=== PATIENT | male | born 1965 | race Caucasian/White ===

== ENCOUNTER 2016-11-27 22:18 | Emergency (ER) | payer BC, OTHER ==
[~2016-11-27] VITALS: Ht 180.3 cm; Wt 203.7 kg
[2016-11-27] MEDS ORDERED: METF-415 PO (22:38)
[2016-11-27] MEDS ORDERED: MULT1CHW39 PO (22:38)
[2016-11-27] MEDS ORDERED: FURO20TA2 PO (22:38)
[2016-11-27] MEDS ORDERED: AZEL0.055 (22:38)
[2016-11-27] MEDS ORDERED: RANI150T PO (22:38)
[2016-11-27] MEDS ORDERED: ASPI1TAB PO (22:38)
[2016-11-27] MEDS ORDERED: GABA-282 PO (22:38)
[2016-11-27] MEDS ORDERED: FLOM5CAP PO (22:38)
[2016-11-27] MEDS ORDERED: KETO10TAB PO (22:38)
[2016-11-27] MEDS ORDERED: PANT40TA2 PO (22:38)
[2016-11-27] MEDS ORDERED: LISI-538 PO (22:38)
[2016-11-27] MEDS ORDERED: OXYC15TA76 PO (22:38)
[2016-11-27] MEDS ORDERED: MOME50SP (22:38)
[2016-11-27] MEDS ORDERED: HYDR12.55 PO (22:38)
[2016-11-27] MEDS ORDERED: NAPR500T2 PO (22:38)
[2016-11-27 23:15] LABS: MICROSCOPIC INDICATED? MAN YES (NO)
[2016-11-27 23:17] LABS: BACTERIA, URINE LARGE AMOUNT; HYALINE CAST, URINE NONE SEEN /lpf (0-1); RBC, URINE TNTC /hpf (0-3); SQUAMOUS EPITHELIAL CELL URINE NONE SEEN /hpf (SMALL AMT); WBC, URINE TNTC /hpf (0-3)
[2016-11-27 23:18] LABS: MICROSCOPIC EXAM PERFORMED
[2016-11-28] MEDS: HYDROmorphone HCL 1 MG/ML SYRINGE (J1170) IV PRN ×2 (01:48→02:56)
[2016-11-28] MEDS: ONDANSETRON 4MG/2ML VIAL (J2405) IV ONE ×2 (01:48→02:56)
[2016-11-28 01:59] LABS: BASO % 0.2 % (0.0-1.0); EOS # 0.3 K/mm3 (0.0-0.50); EOS % 2.2 % (0.0-3.0); LARGE UNSTAINED CELL # 0.2 K/mm3 (0.0-0.4); LARGE UNSTAINED CELL % 1.5 % (0.0-4.0); LYMPH # 1.3 K/mm3 (1.5-4.5); LYMPH % 8.9 % (24.0-44.0); MEAN CORPUSCULAR HEMOGLOBIN 26.6 pg (27.0-33.0); MEAN CORPUSCULAR HGB CONC 32.3 g/dl (32.0-36.5); MEAN CORPUSCULAR VOLUME 82.6 fl (80.0-96.0); MONO # 0.9 K/mm3 (0.0-0.8); MONO % 7.5 % (0.0-5.0); NEUTROPHILS # 9.6 K/mm3 (1.8-7.7); NEUTROPHILS % 79.7 % (36.0-66.0); PLATELET COUNT, AUTOMATED 186 k/mm3 (150-450)
[2016-11-28 02:24] LABS: ALBUMIN 3.1 GM/DL (3.2-5.2); ALBUMIN/GLOBULIN RATIO 0.82 (1.00-1.93); ALKALINE PHOSPHATASE 54 U/L (45-117); ALT/SGPT 35 U/L (12-78); ANION GAP 8 MEQ/L (8-16); AST/SGOT 15 U/L (15-37); BILIRUBIN,DIRECT 0.1 MG/DL (0.0-0.2); BILIRUBIN,TOTAL 0.9 MG/DL (0.2-1.0); BLOOD UREA NITROGEN 18 MG/DL (7-18); CALCIUM LEVEL 8.1 MG/DL (8.5-10.1); CARBON DIOXIDE LEVEL 27 MEQ/L (21-32); CHLORIDE LEVEL 103 MEQ/L (98-107); CREATININE FOR GFR 0.93 MG/DL (0.70-1.30); GLOMERULAR FILTRATION RATE > 60.0 (>56); GLUCOSE, FASTING 137 MG/DL (70-105); POTASSIUM SERUM 3.7 MEQ/L (3.5-5.1); SODIUM LEVEL 138 MEQ/L (136-145); TOTAL PROTEIN 6.9 GM/DL (6.4-8.2)
--- NOTE | 2016-11-28 02:27 | REP ---
Clinical: Pain. Technique: Axial noncontrast images from the lung bases to the pubic symphysis with coronal and sagittal re-formations. Comparison: 01/28/2012. Findings: Lung bases are clear. Liver, spleen, pancreas, gallbladder, bilateral adrenal glands and kidneys are normal. Specifically, there is no perinephric stranding, hydroureteronephrosis, intrarenal or obstructing ureteral calculi. The enteric system is without obstruction or acute inflammatory process. Normal terminal ileum and appendix identified in the right lower quadrant. 3 cm fat containing periumbilical hernia noted. Pelvis demonstrates normal bladder and age appropriate prostate/seminal vesicles. Rectosigmoid is normal. No pelvic fluid or ascites. No intraperitoneal or retroperitoneal adenopathy. No free air. Abdominal aorta without aneurysm. Surrounding musculoskeletal structures are intact and normal. Impression: 1. A 3 cm fat containing periumbilical hernia. 2. Otherwise normal CT of the abdomen and pelvis. Signed by Ar Montiel MD 11/28/2016 02:19 A
[2016-11-28] MEDS ORDERED: HYDROmorphone HCL 1 MG/ML SYRINGE (J1170) IM ONE (02:45)
[2016-11-28] MEDS: NS 1,000 ML IV ONE ×2 (02:55)
[2016-11-28] MEDS: KETOROLAC 30 MG/ML VIAL (J1885) IV ONE ×2 (02:55)
[2016-11-28] MEDS ORDERED: KETOROLAC 60 MG/2 ML VIAL (J1885) IM ONE (03:00)
[2016-11-28 04:11] VITALS: BP 124/60
[2016-11-28] MEDS ORDERED: DILA2TAB2 PO (04:37)
[2016-11-28] MEDS ORDERED: CIPR500T89 PO (04:37)
[2016-11-28] MEDS ORDERED: HYDROmorphone 2 MG TAB PO ONE (04:45)
[2016-11-28] MEDS ORDERED: CIPROFLOXACIN 500 MG TAB PO ONE (04:45)
== END 2016-11-28 05:10 | disposition home or self-care (01) ==
LOC: M ED 22:18
DX: R10.9 Unspecified abdominal pain (principal); R31.9 Hematuria, unspecified; Z87.442 Personal history of urinary calculi; K42.9 Umbilical hernia without obstruction or gangrene; Z79.82 Long term (current) use of aspirin; Z79.899 Other long term (current) drug therapy; Z88.0 Allergy status to penicillin

== ENCOUNTER → 2016-12-08 | Outpatient (REF) | payer OTHER, MEDICARE ==
[~2016-12-08] MED LIST: ASPI1TAB PO; AZEL0.055; BACT800T5 PO; CIPR500T89 PO; DILA2TAB2 PO; FLOM5CAP PO; FURO20TA2 PO; GABA-282 PO; HYDR12.55 PO; KETO10TAB PO; LISI-538 PO; METF-415 PO; MOME50SP; MULT1CHW39 PO; NAPR500T2 PO; OXYC15TA76 PO; PANT40TA2 PO; PYRI200T5 PO; RANI150T PO
== END ==
LOC: M SMT 14:36
PROVIDERS: ATTEND Nurse Practitioner Family
DX: R31.9 Hematuria, unspecified (principal)

== ENCOUNTER 2016-12-20 15:07 | Emergency (ER) | payer MEDICARE, OTHER ==
[~2016-12-20] VITALS: Ht 180.3 cm; Wt 202.9 kg
[~2016-12-20 15:07] MED LIST changes: -BACT800T5 PO; +CIPR-249 PO; -CIPR500T89 PO; -DILA2TAB2 PO; +DILA2TAB6 PO; -NAPR500T2 PO; +NAPR500T3 PO; -PYRI200T5 PO
[2016-12-20] MEDS ORDERED: OXYC15TA76 PO (15:45)
[2016-12-20] MEDS ORDERED: MORPHINE 4 MG/ML 1ML SYRINGE IV ONE (16:45)
[2016-12-20] MEDS ORDERED: BACT800T5 PO (17:25)
[2016-12-20] MEDS ORDERED: PYRI1TAB5 PO (17:25)
--- NOTE | 2016-12-20 17:29 | REP ---
CT study of the abdomen pelvis without IV or oral contrast: Renal stone protocol: History: Low back pain. Hematuria. Comparison CT study is from 11/28/2016. CT findings: Preliminary digital aeronautics commission director radiograph shows image degradation due to patient body habitus but a normal bowel gas pattern is seen. The lung bases are clear. The liver and the spleen are normal in size homogeneous in texture. The gallbladder and pancreas are unremarkable. No adrenal lesion is seen. There is no evidence of hydronephrosis on either side. No intrarenal calculus is seen. No renal mass or cyst is observed. There is some vascular calcification. Normal caliber aorta. A normal appendix is seen in the right lower abdomen. Small umbilical hernia is seen transmitting abdominal fat. There is a second small ventral hernia well above the umbilicus transmitting a small knuckle of abdominal fat through a defect which measures 1.5 centimeters in transverse dimension x 0.8 cm in craniocaudal span. This was excluded from the field of view of the previous CT study because of patient body habitus. No other abdominal wall defect is seen. Seminal vesicles, urinary bladder, and prostate are unremarkable. No urinary tract calculus is seen. No bony destructive lesion is appreciated. Impression: 1. Small umbilical hernia and small epigastric ventral hernia both transmitting small quantities of intra-abdominal fat. 2. Otherwise normal CT study abdomen and pelvis. Normal appendix seen. No urinary tract calculus seen. Mild vascular calcification. Signed by Linden Lowry MD 12/20/2016 08:27 P
[2016-12-20 18:35] LABS: BASO % 0.7 % (0.0-1.0); EOS # 0.2 K/mm3 (0.0-0.50); EOS % 2.6 % (0.0-3.0); LARGE UNSTAINED CELL # 0.1 K/mm3 (0.0-0.4); LARGE UNSTAINED CELL % 2.3 % (0.0-4.0); LYMPH # 1.6 K/mm3 (1.5-4.5); LYMPH % 27.1 % (24.0-44.0); MEAN CORPUSCULAR HEMOGLOBIN 27.7 pg (27.0-33.0); MEAN CORPUSCULAR HGB CONC 33.4 g/dl (32.0-36.5); MEAN CORPUSCULAR VOLUME 83.1 fl (80.0-96.0); MONO # 0.4 K/mm3 (0.0-0.8); MONO % 6.9 % (0.0-5.0); NEUTROPHILS # 3.6 K/mm3 (1.8-7.7); NEUTROPHILS % 60.3 % (36.0-66.0); PLATELET COUNT, AUTOMATED 206 k/mm3 (150-450); RED CELL DISTRIBUTION WIDTH 14.9 % (11.5-14.5); WHITE BLOOD COUNT 5.9 K/mm3 (4.0-10.0)
[2016-12-20 18:40] LABS: INR 1.04
[2016-12-20 18:55] LABS: ANION GAP 6 MEQ/L (8-16); BLOOD UREA NITROGEN 15 MG/DL (7-18); CALCIUM LEVEL 8.7 MG/DL (8.5-10.1); CARBON DIOXIDE LEVEL 29 MEQ/L (21-32); CHLORIDE LEVEL 107 MEQ/L (98-107); CREATININE FOR GFR 0.82 MG/DL (0.70-1.30); GLOMERULAR FILTRATION RATE > 60.0 (>56); GLUCOSE, FASTING 103 MG/DL (70-105); POTASSIUM SERUM 3.9 MEQ/L (3.5-5.1); SODIUM LEVEL 142 MEQ/L (136-145)
[2016-12-20] MEDS ORDERED: BACTRIM 160MG/800MG DS TAB PO ONE (19:15)
[2016-12-20 19:30] VITALS: BP 167/88
== END 2016-12-20 19:31 | disposition home or self-care (01) ==
LOC: M ED 15:07
DX: N30.01 Acute cystitis with hematuria (principal); K43.9 Ventral hernia without obstruction or gangrene; K42.9 Umbilical hernia without obstruction or gangrene; R30.0 Dysuria; E11.9 Type 2 diabetes mellitus without complications; Z87.442 Personal history of urinary calculi; Z87.891 Personal history of nicotine dependence; Z88.0 Allergy status to penicillin; Z91.013 Allergy to seafood; Z79.4 Long term (current) use of insulin; Z79.82 Long term (current) use of aspirin; Z79.1 Long term (current) use of non-steroidal anti-inflammatories (NSAID); Z79.899 Other long term (current) drug therapy

== ENCOUNTER → 2017-01-10 | Outpatient (CLI) | payer OTHER ==
[~2017-01-10] MED LIST changes: +BACT800T5 PO; +PYRI1TAB5 PO
[2017-01-10 11:14] LABS: MEAN CORPUSCULAR HEMOGLOBIN 27.4 pg (27.0-33.0); MEAN CORPUSCULAR HGB CONC 33.4 g/dl (32.0-36.5); MEAN CORPUSCULAR VOLUME 82.2 fl (80.0-96.0); RED CELL DISTRIBUTION WIDTH 14.6 % (11.5-14.5); WHITE BLOOD COUNT 6.1 K/mm3 (4.0-10.0)
[2017-01-10 11:19] LABS: INR 0.97
--- NOTE | 2017-01-10 11:37 | REP ---
Chest two views HISTORY: Hematuria Comparison: 01/28/2012 The lungs are clear. The heart is normal in size. The pulmonary vasculature is normal in appearance. The bony structure is intact. IMPRESSION: No acute disease. Signed by Iban Hernandez MD 01/10/2017 11:28 A
[2017-01-10 11:42] LABS: ANION GAP 8 MEQ/L (8-16); BLOOD UREA NITROGEN 13 MG/DL (7-18); CALCIUM LEVEL 8.7 MG/DL (8.5-10.1); CARBON DIOXIDE LEVEL 28 MEQ/L (21-32); CHLORIDE LEVEL 105 MEQ/L (98-107); CREATININE FOR GFR 0.77 MG/DL (0.70-1.30); GLOMERULAR FILTRATION RATE > 60.0 (>56); GLUCOSE, FASTING 100 MG/DL (70-105); SODIUM LEVEL 141 MEQ/L (136-145)
--- NOTE | 2017-01-10 20:01 | ECGEPIP ---
Stationary ECG Study [facility] Test Date: 2017-01-10 Pat Name: NITA REBOLLAR Department: Room: - Gender: M Management Development Specialist: : 1965 Requested By: Tracy NICKERSON Order Number: [id number] Reading MD: Dk Almanza Measurements Intervals [place] Rate: 65 P: 27 OK: 165 QRS: 50 QRSD: 106 T: 75 QT: 398 QTc: 416 Interpretive Statements Normal sinus rhythm Incomplete RBBB with slow precordial R-wave progression, and persistent S waves in V5 and V6; body habitus versus pulmonary disease. Subtle nonspecific ST/T-wave abnormalities new from 12/06/11. Clinical correlation advised Electronically Signed On 01-10-2017 20:01:03 EDT by Dk Almanza
== END ==
LOC: M LAB 10:38
PROVIDERS: ATTEND Nurse Practitioner Women's Health
DX: Z01.812 Encounter for preprocedural laboratory examination (principal); R31.0 Gross hematuria

== ENCOUNTER → 2017-01-15 | Day surgery (SDC) | payer OTHER ==
[~2017-01-15] VITALS: Ht 182.9 cm; Wt 204.1 kg
[~2017-01-15] MED LIST changes: +ACETAMINOPHEN TAB 650MG DOSE (2X325MG) PO PRN; +CLINDAMYCIN 900 MG in APPROPRIATE DILUENT 1 EA IV ONE; +CONRAY-60 60% 50ML VIAL (Q9961) As Ordered ONE; +LABETALOL HCL 100 MG/20 ML VIAL As Ordered ONE; +LIDOCAINE 2% 5ML JELLY UROJET As Ordered ONE; +LISINOPRIL 20 MG TAB PO ONE; +LR 1,000 ML IV SCH; +MIDAZOLAM INJ 2 MG/2 ML VIAL (J2250) As Ordered ONE; +MIDAZOLAM INJ 5 MG/ML VIAL (J2250) As Ordered ONE; +ONDANSETRON 4MG/2ML VIAL (J2405) IV PRN; +fentaNYL 100 MCG/2 ML INJECTION (J3010) As Ordered ONE; +fentaNYL 100 MCG/2 ML INJECTION (J3010) IV PRN; +oxyCODONE 15 MG CR TAB PO ONE
--- NOTE | 2017-01-15 13:37 | REP ---
C-ARM VIEWS DURING BILATERAL RETROGRADE PYELOGRAM: Four C-arm views are performed. There is injection of contrast into the ureters bilaterally. There is free flow into the pelvicalyceal systems bilaterally. No definite filling defect or structure is seen bilaterally. 12 seconds fluoroscopy time utilized for the procedure. Signed by Elio Modi MD 01/15/2017 05:25 P
[2017-01-15 13:50] VITALS: BP 205/88
[2017-01-15 15:05] VITALS: BP 151/67
--- NOTE | 2017-01-16 09:44 | RO ---
DATE OF PROCEDURE: 01/15/2017 PREPROCEDURE DIAGNOSIS: Gross hematuria. POSTPROCEDURE DIAGNOSIS: Gross hematuria. PROCEDURE: Cystoscopy, bilateral retrograde pyelogram with intraoperative interpretation of images. SURGEON: Richy Saldana MD SALES DEPARTMENT CLERK: None. ANESTHESIA: Monitored anesthesia care (MAC). OPERATIVE INDICATIONS: This is a 51-year-old male who recently was found to have gross hematuria, here today for the above procedure as part of his hematuria work up. DESCRIPTION OF PROCEDURE: The patient was brought to the operating room, and MAC anesthesia was administered. Prophylactic antibiotics were infused. He was then placed in the dorsal lithotomy position and prepped and draped in the usual sterile fashion. At this point, I went in with the flexible cystoscope, and the bladder was thoroughly examined. No abnormalities were seen in the bladder. Of note, there were no tumors seen. Bilateral ureteral orifices were orthotopic and effluxed clear urine. At this point, an open-ended ureteral catheter was advanced up the right ureteral orifice, and a retrograde pyelogram was performed. It was negative for hydronephrosis, extravasation, or filling defects. We then withdrew the open-ended ureteral catheter and advanced it up the left collecting system. A retrograde pyelogram was then performed on the left side, and it was negative for extravasation, hydronephrosis, or filling defects. At this point, the cystoscope was removed, and this marked the conclusion of the procedure. The patient was then taken out of the dorsal lithotomy position, awakened from anesthesia, and transported to the recovery room in stable condition. ESTIMATED BLOOD LOSS: 0 mL. COMPLICATIONS: None. SPECIMENS: None. PLAN: The patient will followup in the clinic in 2 weeks for a postoperative visit. This does conclude his hematuria workup, which was negative. BRENDA
== END | disposition home or self-care (01) ==
LOC: M SDC 09:32
PROVIDERS: ATTEND Urology
DX: R31.0 Gross hematuria (principal); I10 Essential (primary) hypertension; E11.9 Type 2 diabetes mellitus without complications; K21.9 Gastro-esophageal reflux disease without esophagitis; J45.909 Unspecified asthma, uncomplicated; Z88.0 Allergy status to penicillin; Z79.82 Long term (current) use of aspirin; Z79.899 Other long term (current) drug therapy; Z91.013 Allergy to seafood

== ENCOUNTER → 2017-02-20 | Outpatient (CLI) | payer OTHER ==
[~2017-02-20] MED LIST changes: -ACETAMINOPHEN TAB 650MG DOSE (2X325MG) PO PRN; -CLINDAMYCIN 900 MG in APPROPRIATE DILUENT 1 EA IV ONE; -CONRAY-60 60% 50ML VIAL (Q9961) As Ordered ONE; -LABETALOL HCL 100 MG/20 ML VIAL As Ordered ONE; -LIDOCAINE 2% 5ML JELLY UROJET As Ordered ONE; -LISINOPRIL 20 MG TAB PO ONE; -LR 1,000 ML IV SCH; -MIDAZOLAM INJ 2 MG/2 ML VIAL (J2250) As Ordered ONE; -MIDAZOLAM INJ 5 MG/ML VIAL (J2250) As Ordered ONE; -ONDANSETRON 4MG/2ML VIAL (J2405) IV PRN; -fentaNYL 100 MCG/2 ML INJECTION (J3010) As Ordered ONE; -fentaNYL 100 MCG/2 ML INJECTION (J3010) IV PRN; -oxyCODONE 15 MG CR TAB PO ONE
[2017-02-20 17:22] LABS: MEAN CORPUSCULAR HEMOGLOBIN 27.5 pg (27.0-33.0); MEAN CORPUSCULAR VOLUME 83.4 fl (80.0-96.0); RED CELL DISTRIBUTION WIDTH 14.8 % (11.5-14.5); WHITE BLOOD COUNT 6.4 K/mm3 (4.0-10.0)
== END ==
LOC: M LRY 14:37
PROVIDERS: ATTEND Physician Assistant Medical
DX: D69.6 Thrombocytopenia, unspecified (principal)

== ENCOUNTER → 2018-03-05 | Outpatient (CLI) | payer OTHER | LOC: M RAD 12:52 | DX: N50.89 Other specified disorders of the male genital organs (principal); N43.3 Hydrocele, unspecified | CPT/HCPCS: 76870 ==

== ENCOUNTER → 2018-03-08 | Outpatient (CLI) | payer OTHER ==
[2018-03-08 11:36] LABS: BASO % 0.6 % (0.0-1.0); EOS # 0.2 10^3/uL (0.0-0.50); HEMATOCRIT 43.6 % (42.0-52.0); HEMOGLOBIN 14.1 g/dl (13.5-17.5); IMMATURE GRANULOCYTE % 0.4 % (0-3.0); LYMPH # 1.4 10^3/uL (1.5-4.5); LYMPH % 27.2 % (24.0-44.0); MEAN CORPUSCULAR HEMOGLOBIN 27.2 pg (27.0-33.0); MEAN CORPUSCULAR HGB CONC 32.3 g/dl (32.0-36.5); MONO # 0.5 10^3/uL (0.0-0.8); MONO % 9.7 % (0.0-5.0); NEUTROPHILS # 3.1 10^3/uL (1.8-7.7); NEUTROPHILS % 59.1 % (36.0-66.0); PLATELET COUNT, AUTOMATED 188 10^3/uL (150-450); RED BLOOD COUNT 5.19 10^6/uL (4.30-6.10); RED CELL DISTRIBUTION WIDTH 14.4 % (11.5-14.5); WHITE BLOOD COUNT 5.3 10^3/uL (4.0-10.0)
[2018-03-08 12:10] LABS: ALBUMIN 3.3 GM/DL (3.2-5.2); ALBUMIN/GLOBULIN RATIO 0.89 (1.00-1.93); ALKALINE PHOSPHATASE 54 U/L (45-117); ALT/SGPT 48 U/L (12-78); ANION GAP 7 MEQ/L (8-16); AST/SGOT 27 U/L (7-37); BILIRUBIN,TOTAL 0.5 MG/DL (0.2-1.0); BLOOD UREA NITROGEN 13 MG/DL (7-18); CALCIUM LEVEL 8.5 MG/DL (8.5-10.1); CARBON DIOXIDE LEVEL 29 MEQ/L (21-32); CHLORIDE LEVEL 106 MEQ/L (98-107); CHOLESTEROL LEVEL 153 MG/DL (<200); CHOLESTEROL RISK RATIO 3.731 (<5); CREATININE FOR GFR 0.75 MG/DL (0.70-1.30); FREE T4 0.96 NG/DL (0.76-1.46); GLOMERULAR FILTRATION RATE > 60.0 (>56); GLUCOSE, FASTING 102 MG/DL (70-100); HDL CHOLESTEROL 41 MG/DL (>40); LDL CHOLESTEROL 93 MG/DL (<100); NON-HDL-C 112 MG/DL; POTASSIUM SERUM 4.4 MEQ/L (3.5-5.1); SODIUM LEVEL 142 MEQ/L (136-145); TRIGLYCERIDES LEVEL 95 MG/DL (<150)
[2018-03-08 22:10] LABS: ESTIMATED AVERAGE GLUCOSE 140 MG/DL (60-110); HEMOGLOBIN A1c 6.5 %
== END ==
LOC: M LRY 08:10
DX: E78.2 Mixed hyperlipidemia (principal); E11.65 Type 2 diabetes mellitus with hyperglycemia; E03.9 Hypothyroidism, unspecified; I10 Essential (primary) hypertension
CPT/HCPCS: 84443

== ENCOUNTER → 2018-05-15 | Outpatient (CLI) | payer OTHER | LOC: M PAIN 14:30 | DX: Z53.29 Procedure and treatment not carried out because of patient's decision for other reasons (principal) ==

== ENCOUNTER → 2018-08-08 | Outpatient (CLI) | payer OTHER ==
[~2018-08-08] MED LIST changes: +FLOM0.4C39 PO; -FLOM5CAP PO; -GABA-282 PO; +GABA-843 PO; +NAPR-885 PO; -NAPR500T3 PO; -PANT40TA2 PO; +PANT40TA3 PO
[2018-08-08 11:56] LABS: BASO % 0.7 % (0.0-1.0); EOS # 0.1 10^3/uL (0.0-0.50); EOS % 2.5 % (0.0-3.0); HEMATOCRIT 40.7 % (42.0-52.0); HEMOGLOBIN 13.1 g/dl (13.5-17.5); LYMPH # 1.5 10^3/uL (1.5-4.5); LYMPH % 26.2 % (24.0-44.0); MEAN CORPUSCULAR HEMOGLOBIN 27.2 pg (27.0-33.0); MEAN CORPUSCULAR HGB CONC 32.2 g/dl (32.0-36.5); MEAN CORPUSCULAR VOLUME 84.6 fl (80.0-96.0); MONO # 0.5 10^3/uL (0.0-0.8); MONO % 9.7 % (0.0-5.0); NEUTROPHILS # 3.4 10^3/uL (1.8-7.7); NEUTROPHILS % 60.7 % (36.0-66.0); PLATELET COUNT, AUTOMATED 210 10^3/uL (150-450); RED BLOOD COUNT 4.81 10^6/uL (4.30-6.10); WHITE BLOOD COUNT 5.6 10^3/uL (4.0-10.0)
[2018-08-08 12:43] LABS: ALBUMIN 3.5 GM/DL (3.2-5.2); ALT/SGPT 88 U/L (12-78); BILIRUBIN,TOTAL 0.8 MG/DL (0.2-1.0); BLOOD UREA NITROGEN 13 MG/DL (7-18); CALCIUM LEVEL 8.5 MG/DL (8.5-10.1); CARBON DIOXIDE LEVEL 31 MEQ/L (21-32); CHLORIDE LEVEL 100 MEQ/L (98-107); CHOLESTEROL LEVEL 180 MG/DL (<200); CHOLESTEROL RISK RATIO 4.186 (<5); CREATININE FOR GFR 0.76 MG/DL (0.70-1.30); GLOMERULAR FILTRATION RATE > 60.0 (>56); GLUCOSE, FASTING 105 MG/DL (70-100); HDL CHOLESTEROL 43 MG/DL (>40); LDL CHOLESTEROL 120 MG/DL (<100); NON-HDL-C 137 MG/DL; POTASSIUM SERUM 3.8 MEQ/L (3.5-5.1); SODIUM LEVEL 139 MEQ/L (136-145); TOTAL PROTEIN 6.8 GM/DL (6.4-8.2); TRIGLYCERIDES LEVEL 87 MG/DL (<150)
[2018-08-08 14:50] LABS: HEMOGLOBIN A1c 8.5 %
== END ==
LOC: M LAB 10:51
PROVIDERS: ATTEND Nurse Practitioner Adult Health
DX: Z51.81 Encounter for therapeutic drug level monitoring (principal); Z79.899 Other long term (current) drug therapy; E11.65 Type 2 diabetes mellitus with hyperglycemia; E78.2 Mixed hyperlipidemia

== ENCOUNTER → 2020-02-25 | Outpatient (REF) | payer MEDICARE, OTHER ==
[~2020-02-25] MED LIST changes: -ASPI1TAB PO; +ASPI81TA26 PO; -MULT1CHW39 PO; +MULT200T7 PO; +OXYC-1 PO; -OXYC15TA76 PO; +PANT40TA29 PO; -PANT40TA3 PO
== END ==
LOC: M LAB REF 11:00
PROVIDERS: ATTEND Dermatology
DX: L82.1 Other seborrheic keratosis (principal); L72.0 Epidermal cyst

== ENCOUNTER → 2020-02-25 | Outpatient (CLI) | payer MEDICARE, OTHER ==
--- NOTE | 2020-03-23 11:36 | REP ---
SPINE RADIOGRAPHS CLINICAL: Pain and dysfunction. TECHNIQUE: AP, lateral, swimmers, and open-mouth views of the cervical spine along with AP and lateral views of the thoracic spine and AP, lateral, and coned down views of the lumbosacral spine. FINDINGS: Examination is limited due to technique and body habitus. Cervical spine demonstrates normal alignment without fracture/compression injury or subluxation. Moderate/early advanced degenerative changes include endplate sclerosis with osteophytosis and elements of disc space narrowing. Thoracic spine demonstrates normal alignment and kyphosis with moderate multilevel degenerative changes including endplate sclerosis, disc space narrowing, and osteophytosis. Lumbosacral spine demonstrates mild chronic levoconvex scoliosis along with moderate multilevel degenerative changes including endplate sclerosis with early marginal spurring. Minimal disc space narrowing at L5-S1. IMPRESSION: Generalized multilevel degenerative spondylosis as described above. Evaluation is limited. If patient remains symptomatic at specific levels, specific MRI examination may be obtained for a more definitive evaluation. MTDD
== END ==
LOC: M LRY 13:01
PROVIDERS: ATTEND Chiropractor
DX: M99.03 Segmental and somatic dysfunction of lumbar region (principal); M51.36 Other intervertebral disc degeneration, lumbar region; M51.37 Other intervertebral disc degeneration, lumbosacral region; M50.33 Other cervical disc degeneration, cervicothoracic region
CPT/HCPCS: 11102; 72082; G0463

== ENCOUNTER → 2020-08-05 | Outpatient (CLI) | payer MEDICARE ==
[~2020-08-05] MED LIST changes: +GABA-282 PO; -GABA-843 PO; -LISI-538 PO; +LISI20TA33 PO
--- NOTE | 2020-08-05 08:41 | REP ---
INDICATION: ELEVATED LFT'S COMPARISON: None. TECHNIQUE: Real time trevizo scale ultrasound examination using curved array transducer. FINDINGS: Liver is normal in contour, size, and echogenicity without focal hepatic lesions identified. Pancreas is incompletely evaluated due to interposed bowel gas. The gallbladder is normal and without gallstones, wall thickening, or pericholecystic fluid. No biliary ductal dilatation is appreciated and the common bile duct measures 5.0 mm diameter. Right kidney is normal in reniform shape without hydronephrosis and measures 15.4 x 6.6 x 7.5 cm cm. No ascites in the visualized right upper quadrant. IMPRESSION: Normal limited right upper quadrant ultrasound <Electronically signed by Ar Montiel > 08/05/20 [id number]
== END ==
LOC: M RAD 07:39
PROVIDERS: ATTEND Nurse Practitioner Family
DX: R94.5 Abnormal results of liver function studies (principal)

== ENCOUNTER → 2022-05-30 | Outpatient (CLI) | payer MEDICARE, MEDICAID ==
[~2022-05-30] MED LIST changes: -MOME50SP; +NASO50SP3
[2022-05-30 14:26] LABS: HEMATOCRIT 39.7 % (42.0-52.0); HEMOGLOBIN 12.9 g/dl (13.5-17.5); MEAN CORPUSCULAR HEMOGLOBIN 28.1 pg (27.0-33.0); MEAN CORPUSCULAR HGB CONC 32.5 g/dl (32.0-36.5); MEAN CORPUSCULAR VOLUME 86.5 fl (80.0-96.0); PLATELET COUNT, AUTOMATED 212 10^3/uL (150-450); RED BLOOD COUNT 4.59 10^6/uL (4.30-6.10); WHITE BLOOD COUNT 6.6 10^3/uL (4.0-10.0)
[2022-05-30 14:37] LABS: LDH LACTATE DEHYDROGENASE 177 U/L (120-246)
[2022-05-30 14:38] LABS: ALBUMIN 3.4 G/DL (3.2-5.2); ALKALINE PHOSPHATASE 64 U/L (46-116); ALT/SGPT 36 U/L (7.0-40); AST/SGOT 24 U/L (<34); BILIRUBIN,TOTAL 0.5 MG/DL (0.3-1.2); BLOOD UREA NITROGEN 13 MG/DL (9-23); CARBON DIOXIDE LEVEL 28 MMOL/L (20-31); CHLORIDE LEVEL 103 MMOL/L (98-107); CREATININE FOR GFR 0.57 MG/DL (0.70-1.30); GLOMERULAR FILTRATION RATE > 60.0 (>56); GLUCOSE, FASTING 274 MG/DL (60-100); SODIUM LEVEL 139 MMOL/L (136-145); TOTAL PROTEIN 6.9 G/DL (5.7-8.2)
[2022-05-30 14:56] LABS: ERYTHROCYTE SEDIMENTATION RATE 27 mm/hr (0-20)
== END ==
LOC: M PLALAB 10:00
PROVIDERS: ATTEND Internal Medicine Hematology
DX: H34.239 Retinal artery branch occlusion, unspecified eye (principal)

== ENCOUNTER → 2022-08-29 | Outpatient (CLI) | payer MEDICARE, MEDICAID ==
[2022-09-12 16:09] LABS: ANTI THROMBIN 3 ANTIGEN IMMUNO 70 % (72-124); ANTI THROMBIN 3 FUNCT ACTIVITY 88 % (75-135); HOMOCYST(E)INE SERUM 8.6 umol/L (0.0-14.5); PROTEIN C FUNCTIONAL ACTIVITY 92 % (73-180); PROTEIN S FUNCTIONAL ACTIVITY 89 % (63-140)
== END ==
LOC: M LAB 15:11 → M PLALAB 15:11
PROVIDERS: ATTEND Internal Medicine Hematology
DX: H34.239 Retinal artery branch occlusion, unspecified eye (principal)

== ENCOUNTER 2023-02-08 13:01 | Outpatient (RCR) | payer MEDICARE, MEDICAID | END 2023-02-22 | LOC: M PT 13:01 | PROVIDERS: ATTEND Registered Nurse | DX: I89.0 Lymphedema, not elsewhere classified (principal) ==

== ENCOUNTER → 2023-03-14 | Outpatient (CLI) | payer MEDICARE, MEDICAID | LOC: M RAD 16:13 | PROVIDERS: ATTEND Registered Nurse | DX: J20.9 Acute bronchitis, unspecified (principal) ==

== ENCOUNTER → 2023-09-11 | Outpatient (CLI) | payer MEDICARE, MEDICAID ==
[2023-09-11 16:47] LABS: HEMATOCRIT 40.1 % (42.0-52.0); HEMOGLOBIN 12.5 g/dl (13.5-17.5); MEAN CORPUSCULAR HEMOGLOBIN 27.2 pg (27.0-33.0); MEAN CORPUSCULAR HGB CONC 31.2 g/dl (32.0-36.5); MEAN CORPUSCULAR VOLUME 87.4 fl (80.0-96.0); PLATELET COUNT, AUTOMATED 221 10^3/uL (150-450); RED BLOOD COUNT 4.59 10^6/uL (4.30-6.10); WHITE BLOOD COUNT 7.2 10^3/uL (4.0-10.0)
[2023-09-11 17:13] LABS: CREATININE, URINE 116.2 MG/DL; MAU/CREAT RATIO 41.3 MCG/MG (0.0-30.0)
[2023-09-11 17:15] LABS: ALBUMIN 3.7 G/DL (3.2-5.2); ALKALINE PHOSPHATASE 64 U/L (46-116); ALT/SGPT 35 U/L (7.0-40); AST/SGOT 12 U/L (<34); BILIRUBIN,TOTAL 0.7 MG/DL (0.3-1.2); BLOOD UREA NITROGEN 12 MG/DL (9-23); CARBON DIOXIDE LEVEL 31 MMOL/L (20-31); CHLORIDE LEVEL 103 MMOL/L (98-107); CHOLESTEROL LEVEL 111 MG/DL (<200); CHOLESTEROL RISK RATIO 2.23 (<5); CREATININE FOR GFR 0.59 MG/DL (0.70-1.30); GLOMERULAR FILTRATION RATE > 60.0 (>56); GLUCOSE, FASTING 141 MG/DL (60-100); HDL CHOLESTEROL 49.6 MG/DL (>40); NON-HDL-C 61.4 MG/DL; POTASSIUM SERUM 3.9 MMOL/L (3.5-5.1); PROSTATIC SPECIFIC AG MONITOR 0.28 NG/ML (< 4.00); SODIUM LEVEL 140 MMOL/L (136-145); TOTAL PROTEIN 6.8 G/DL (5.7-8.2); TRIGLYCERIDES LEVEL 57 MG/DL (<150)
[2023-09-11 17:16] LABS: HEMOGLOBIN A1c 7.1 % (4.0-6.0)
== END ==
LOC: M WUC 11:23
PROVIDERS: ATTEND Registered Nurse
DX: M79.644 Pain in right finger(s) (principal)

== ENCOUNTER → 2023-10-11 | Outpatient (CLI) | payer MEDICARE, MEDICAID | LOC: M RAD 12:05 | PROVIDERS: ATTEND Physician Assistant | DX: I87.332 Chronic venous hypertension (idiopathic) with ulcer and inflammation of left lower extremity (principal) ==

== ENCOUNTER 2024-01-29 13:12 | Emergency (ER) | payer MEDICARE, MEDICAID ==
[~2024-01-29] VITALS: Ht 182.9 cm; Wt 152.3 kg
[~2024-01-29 13:12] MED LIST changes: -AZEL0.055; +AZEL1SPR4
[2024-01-29] MEDS ORDERED: VALS1TAB68 (13:32)
[2024-01-29] MEDS ORDERED: ATOR1TAB21 (13:32)
[2024-01-29] MEDS ORDERED: AMLO1TAB25 (13:32)
[2024-01-29] MEDS ORDERED: TRAD5TAB (13:32)
[2024-01-29] MEDS ORDERED: LABE100T6 (13:32)
[2024-01-29] MEDS ORDERED: FAMO1TAB11 (13:32)
[2024-01-29] MEDS ORDERED: KETO2CR (13:32)
[2024-01-29] MEDS ORDERED: TRAM50TA2 (13:32)
[2024-01-29] MEDS: ACETAMINOPHEN 500 MG TAB PO ONE (16:55)
[2024-01-29 18:30] VITALS: BP 115/54
[2024-01-29 19:36] LABS: BASO % 0.3 % (0.0-1.0); EOS % 0.3 % (0.0-3.0); HEMATOCRIT 37.2 % (42.0-52.0); LYMPH # 0.5 10^3/uL (1.5-5.0); LYMPH % 4.4 % (24.0-44.0); MEAN CORPUSCULAR HGB CONC 32.3 g/dl (32.0-36.5); MEAN CORPUSCULAR VOLUME 80.5 fl (80.0-96.0); MONO # 0.6 10^3/uL (0.0-0.8); MONO % 5.1 % (2.0-8.0); NEUTROPHILS # 9.7 10^3/uL (1.5-8.5); NEUTROPHILS % 89.6 % (36.0-66.0); PLATELET COUNT, AUTOMATED 265 10^3/uL (150-450); RED BLOOD COUNT 4.62 10^6/uL (4.30-6.10); WHITE BLOOD COUNT 10.8 10^3/uL (4.0-10.0)
[2024-01-29 19:43] LABS: ERYTHROCYTE SEDIMENTATION RATE 59 mm/hr (0-20)
[2024-01-29 20:24] VITALS: TEMP 99; O2SAT 95
[2024-01-29 20:26] LABS: ALBUMIN 3.2 G/DL (3.2-5.2); ALKALINE PHOSPHATASE 80 U/L (46-116); ALT/SGPT 19 U/L (7.0-40); AST/SGOT 21 U/L (<34); BILIRUBIN,TOTAL 1.1 MG/DL (0.3-1.2); BLOOD UREA NITROGEN 15 MG/DL (9-23); CALCIUM LEVEL 8.6 MG/DL (8.5-10.1); CARBON DIOXIDE LEVEL 23 MMOL/L (20-31); CHLORIDE LEVEL 104 MMOL/L (98-107); CREATININE FOR GFR 0.64 MG/DL (0.70-1.30); GLOMERULAR FILTRATION RATE > 60.0 (>56); GLUCOSE, FASTING 143 MG/DL (60-100); POTASSIUM SERUM 3.9 MMOL/L (3.5-5.1); SODIUM LEVEL 138 MMOL/L (136-145); TOTAL PROTEIN 6.7 G/DL (5.7-8.2)
[2024-01-29] MEDS ORDERED: CEPH500C PO (20:31)
[2024-01-29] MEDS: CEPHALEXIN 500 MG CAP PO ONE (20:40)
== END 2024-01-29 20:52 | disposition home or self-care (01) ==
LOC: M ED 13:12
DX: N39.0 Urinary tract infection, site not specified (principal); R50.9 Fever, unspecified; I44.0 Atrioventricular block, first degree; I45.81 Long QT syndrome; I10 Essential (primary) hypertension; K21.9 Gastro-esophageal reflux disease without esophagitis; G47.33 Obstructive sleep apnea (adult) (pediatric); Z87.442 Personal history of urinary calculi; Z79.82 Long term (current) use of aspirin; Z79.02 Long term (current) use of antithrombotics/antiplatelets; Z79.811 Long term (current) use of aromatase inhibitors; Z79.899 Other long term (current) drug therapy; Z79.2 Long term (current) use of antibiotics; Z91.013 Allergy to seafood; Z88.0 Allergy status to penicillin

== ENCOUNTER → 2024-03-19 | Outpatient (CLI) | payer MEDICARE, MEDICAID ==
[~2024-03-19] MED LIST changes: +AMLO1TAB25; +ATOR1TAB21; +CEPH500C PO; +FAMO1TAB11; +KETO2CR; +LABE100T6; +TRAD5TAB; +TRAM50TA2; +VALS1TAB68
== END ==
LOC: M RAD 12:13
PROVIDERS: ATTEND Physician Assistant
DX: I87.333 Chronic venous hypertension (idiopathic) with ulcer and inflammation of bilateral lower extremity (principal); I89.0 Lymphedema, not elsewhere classified; L97.221 Non-pressure chronic ulcer of left calf limited to breakdown of skin; L97.211 Non-pressure chronic ulcer of right calf limited to breakdown of skin

== ENCOUNTER → 2024-04-11 | Outpatient (CLI) | payer MEDICARE, MEDICAID ==
[~2024-04-11] MED LIST changes: +GABA-1172 PO; -GABA-282 PO; -MULT200T7 PO; +MULT200T9 PO
[2024-04-11 15:36] LABS: BASO % 0.4 % (0.0-1.0); EOS # 0.3 10^3/uL (0.0-0.5); HEMATOCRIT 29.6 % (42.0-52.0); HEMOGLOBIN 9.5 g/dl (13.5-17.5); LYMPH # 1.1 10^3/uL (1.5-5.0); LYMPH % 13.6 % (24.0-44.0); MEAN CORPUSCULAR HEMOGLOBIN 25.7 pg (27.0-33.0); MEAN CORPUSCULAR HGB CONC 32.1 g/dl (32.0-36.5); MONO # 0.9 10^3/uL (0.0-0.8); MONO % 11.5 % (2.0-8.0); NEUTROPHILS # 5.4 10^3/uL (1.5-8.5); NEUTROPHILS % 68.5 % (36.0-66.0); PLATELET COUNT, AUTOMATED 252 10^3/uL (150-450); WHITE BLOOD COUNT 7.9 10^3/uL (4.0-10.0)
[2024-04-11 15:42] LABS: ERYTHROCYTE SEDIMENTATION RATE 115 mm/hr (0-20)
== END ==
LOC: M LAB 14:42 → M PLALAB 14:42
PROVIDERS: ATTEND Registered Nurse
DX: J18.9 Pneumonia, unspecified organism (principal)

== ENCOUNTER → 2024-08-14 | Outpatient (REF) | payer MEDICARE, MEDICAID | LOC: M SFHCPLAZ 15:01 | PROVIDERS: ATTEND Internal Medicine Infectious Disease | DX: L03.119 Cellulitis of unspecified part of limb (principal) ==

== ENCOUNTER → 2024-08-15 | Outpatient (REF) | payer MEDICARE, MEDICAID ==
[2024-08-15 14:53] LABS: BASO # 0.1 10^3/uL (0.0-0.2); BASO % 0.7 % (0.0-1.0); EOS # 0.4 10^3/uL (0.0-0.5); EOS % 3.5 % (0.0-3.0); HEMATOCRIT 28.9 % (42.0-52.0); HEMOGLOBIN 8.5 g/dl (13.5-17.5); LYMPH % 8.3 % (24.0-44.0); MEAN CORPUSCULAR HEMOGLOBIN 22.5 pg (27.0-33.0); MEAN CORPUSCULAR HGB CONC 29.4 g/dl (32.0-36.5); MEAN CORPUSCULAR VOLUME 76.5 fl (80.0-96.0); MONO # 0.8 10^3/uL (0.0-0.8); MONO % 7.1 % (2.0-8.0); NEUTROPHILS # 9.3 10^3/uL (1.5-8.5); NEUTROPHILS % 79.9 % (36.0-66.0); PLATELET COUNT, AUTOMATED 234 10^3/uL (150-450); RED BLOOD COUNT 3.78 10^6/uL (4.30-6.10); WHITE BLOOD COUNT 11.6 10^3/uL (4.0-10.0)
[2024-08-15 15:04] LABS: ALBUMIN 2.9 G/DL (3.2-5.2); ALKALINE PHOSPHATASE 71 U/L (40-129); ALT/SGPT 13 U/L (7.0-40); AST/SGOT 11 U/L (<34); BILIRUBIN,TOTAL 0.5 MG/DL (0.3-1.2); BLOOD UREA NITROGEN 16 MG/DL (9-23); C REACTIVE PROTEIN QUANTITATIV 1.44 MG/DL (<1.0); CALCIUM LEVEL 8.8 MG/DL (8.5-10.1); CARBON DIOXIDE LEVEL 29 MMOL/L (20-31); CHLORIDE LEVEL 106 MMOL/L (98-107); CREATININE FOR GFR 0.78 MG/DL (0.70-1.30); GLOMERULAR FILTRATION RATE > 60.0 (>56); GLUCOSE, FASTING 102 MG/DL (60-100); POTASSIUM SERUM 4.1 MMOL/L (3.5-5.1); SODIUM LEVEL 144 MMOL/L (136-145); TOTAL PROTEIN 6.8 G/DL (5.7-8.2)
[2024-08-15 15:51] LABS: HEMOGLOBIN A1c 6.8 % (4.0-6.0)
[2024-08-16 17:49] LABS: ANTI-STREPTOLYSIN O QUANT 966.1 IU/ML (<195)
== END ==
LOC: M LAB REF 13:27
PROVIDERS: ATTEND Internal Medicine Infectious Disease
DX: L03.119 Cellulitis of unspecified part of limb (principal); E11.9 Type 2 diabetes mellitus without complications

== ENCOUNTER → 2024-09-16 | Outpatient (REF) | payer MEDICARE, MEDICAID ==
[2024-09-16 14:05] LABS: APPEARANCE, URINE CLOUDY (CLEAR); BACTERIA, URINE AUTO NEGATIVE (NEGATIVE); BILIRUBIN, URINE AUTO NEGATIVE (NEGATIVE); BLOOD, URINE BLOOD 3+ (NEGATIVE); COLOR, URINE AMBER (YELLOW); GLUCOSE, URINE (UA) AUTO NEGATIVE (NEGATIVE); KETONE, URINE AUTO NEGATIVE (NEGATIVE); LEUKOCYTE ESTERASE, URINE AUTO 2+ (NEGATIVE); NITRITE, URINE AUTO NEGATIVE (NEGATIVE); PROTEIN, URINE AUTO 2+ mg/dL (NEGATIVE); RBC, URINE AUTO TNTC /HPF (0-3); SPECIFIC GRAVITY URINE AUTO 1.017 (1.002-1.035); SQUAMOUS EPITHELIAL CELL UR AU 0 /HPF (0-6); WBC, URINE AUTO 72 /HPF (0-3)
== END ==
LOC: M SFHCPLAZ 12:48
PROVIDERS: ATTEND Internal Medicine Infectious Disease
DX: R31.9 Hematuria, unspecified (principal)

== ENCOUNTER → 2024-10-10 | Outpatient (REF) | payer MEDICARE, MEDICAID ==
[2024-10-10 15:43] LABS: APPEARANCE, URINE CLOUDY (CLEAR); BACTERIA, URINE AUTO NEGATIVE (NEGATIVE); BILIRUBIN, URINE AUTO NEGATIVE (NEGATIVE); BLOOD, URINE BLOOD 3+ (NEGATIVE); COLOR, URINE AMBER (YELLOW); GLUCOSE, URINE (UA) AUTO NEGATIVE (NEGATIVE); KETONE, URINE AUTO NEGATIVE (NEGATIVE); LEUKOCYTE ESTERASE, URINE AUTO 2+ (NEGATIVE); MUCUS, URINE SMALL (NEGATIVE); NITRITE, URINE AUTO NEGATIVE (NEGATIVE); PROTEIN, URINE AUTO 2+ mg/dL (NEGATIVE); RBC, URINE AUTO TNTC /HPF (0-3); SPECIFIC GRAVITY URINE AUTO 1.021 (1.002-1.035); SQUAMOUS EPITHELIAL CELL UR AU 1 /HPF (0-6); UROBILINOGEN, URINE AUTO 0.2 mg/dL (0.0-2.0); WBC, URINE AUTO 57 /HPF (0-3)
== END ==
LOC: M SMT 14:58
PROVIDERS: ATTEND Urology
DX: R31.29 Other microscopic hematuria (principal)

== ENCOUNTER → 2024-10-28 | Outpatient (CLI) | payer MEDICARE, MEDICAID ==
[~2024-10-28] MED LIST changes: +AMLO1TAB24 PO; -ATOR1TAB21; +ATOR1TAB21 PO; +COEN100T PO; +EPIP0.3I2 SQ; -FAMO1TAB11; +FAMO1TAB11 PO; -FLOM0.4C39 PO; +GABA-1171 PO; -LABE100T6; +LABE100T6 PO; +LIDOCAINE 1% MDV 20ML VIAL As Ordered ONE; +MOME17SP NS; +SUPETAB44 PO; +TAMS-18 PO; -TRAD5TAB; +TRAD5TAB PO; -VALS1TAB68; +VALS1TAB68 PO; +VENTAER INH
[2024-10-28 13:00] VITALS: TEMP 98
[2024-10-28 14:00] VITALS: BP 158/71; O2SAT 97
== END ==
LOC: M IRPRO 12:20
PROVIDERS: ATTEND Registered Nurse
DX: R59.0 Localized enlarged lymph nodes (principal)

== ENCOUNTER → 2024-11-12 | Outpatient (REF) | payer MEDICARE, MEDICAID ==
[~2024-11-12] MED LIST changes: -LIDOCAINE 1% MDV 20ML VIAL As Ordered ONE
[2024-11-12 13:53] LABS: APPEARANCE, URINE CLOUDY (CLEAR); BACTERIA, URINE AUTO NEGATIVE (NEGATIVE); BILIRUBIN, URINE AUTO NEGATIVE (NEGATIVE); BLOOD, URINE BLOOD 3+ (NEGATIVE); COLOR, URINE YELLOW (YELLOW); GLUCOSE, URINE (UA) AUTO NEGATIVE (NEGATIVE); KETONE, URINE AUTO NEGATIVE (NEGATIVE); LEUKOCYTE ESTERASE, URINE AUTO 2+ (NEGATIVE); NITRITE, URINE AUTO NEGATIVE (NEGATIVE); PROTEIN, URINE AUTO 2+ mg/dL (NEGATIVE); RBC, URINE AUTO TNTC /HPF (0-3); SPECIFIC GRAVITY URINE AUTO 1.017 (1.002-1.035); SQUAMOUS EPITHELIAL CELL UR AU 0 /HPF (0-6); UROBILINOGEN, URINE AUTO 0.2 mg/dL (0.0-2.0); WBC, URINE AUTO 63 /HPF (0-3)
== END ==
LOC: M SMT 13:04
PROVIDERS: ATTEND Urology
DX: Z87.440 Personal history of urinary (tract) infections (principal)

== ENCOUNTER 2025-01-01 17:46 | Emergency (ER) | payer MEDICARE, MEDICAID ==
[~2025-01-01] VITALS: Ht 182.9 cm; Wt 202.0 kg
[2025-01-01] MEDS ORDERED: ACET-683 PO (18:06)
[2025-01-01 18:24] LABS: VENOUS BASE EXCESS -0.9 (-2.0-2.0); VENOUS HCO3 22.7 MMOL/L (23.0-27.0); VENOUS O2 SATURATION 98.6 % (60.0-80.0); VENOUS PARTIAL PRESSURE CO2 33.0 mmHg (38.0-50.0); VENOUS PARTIAL PRESSURE O2 136.5 mmHg (30.0-50.0); VENOUS PH 7.455 UNITS (7.330-7.430); VENOUS STANDARD HCO3 23.8 MMOL/L; VENOUS TOTAL CO2 23.7 MMOL/L (24.0-28.0)
[2025-01-01 18:33] LABS: BASO # 0.0 10^3/uL (0.0-0.2); BASO % 0.2 % (0.0-1.0); EOS # 0.1 10^3/uL (0.0-0.5); EOS % 0.7 % (0.0-3.0); LYMPH # 0.3 10^3/uL (1.5-5.0); LYMPH % 2.5 % (24.0-44.0); MONO # 0.7 10^3/uL (0.0-0.8); MONO % 6.1 % (2.0-8.0); NEUTROPHILS # 10.8 10^3/uL (1.5-8.5); NEUTROPHILS % 89.9 % (36.0-66.0); PLATELET COUNT, AUTOMATED 194 10^3/uL (150-450)
[2025-01-01 18:45] LABS: KETONE, URINE AUTO RFX NEGATIVE (NEGATIVE); MUCUS, URINE RFX SMALL (NEGATIVE); NITRITE, URINE AUTO RFX NEGATIVE (NEGATIVE); RBC, URINE AUTO RFX TNTC /HPF (0-3); SQUAM EPITHELIAL CELL UR AURFX 0 /HPF (0-6)
[2025-01-01 18:52] LABS: LEUKOCYTE ESTERASE UR AUTO RFX TRACE (NEGATIVE); WBC, URINE AUTO RFX 56 /HPF (0-3)
[2025-01-01 18:53] LABS: INR 1.09
[2025-01-01 19:05] LABS: ALT/SGPT 13 U/L (7.0-40); AST/SGOT 18 U/L (<34); CALCIUM LEVEL 8.8 MG/DL (8.5-10.1); CARBON DIOXIDE LEVEL 25 MMOL/L (20-31); CHLORIDE LEVEL 106 MMOL/L (98-107); CREATININE FOR GFR 0.80 MG/DL (0.70-1.30); GLOMERULAR FILTRATION RATE > 90.0 (>56); POTASSIUM SERUM 4.0 MMOL/L (3.5-5.1); SODIUM LEVEL 142 MMOL/L (136-145)
[2025-01-01 23:23] VITALS: BP 153/69; TEMP 99; O2SAT 98
== END 2025-01-01 23:33 | disposition home or self-care (01) ==
LOC: M ED 17:46 → EDBD 17:46 → M ED 23:33
DX: B34.9 Viral infection, unspecified (principal); E11.9 Type 2 diabetes mellitus without complications; E78.5 Hyperlipidemia, unspecified; J45.909 Unspecified asthma, uncomplicated; K21.9 Gastro-esophageal reflux disease without esophagitis; Z87.442 Personal history of urinary calculi; Z88.0 Allergy status to penicillin; R94.31 Abnormal electrocardiogram [ECG] [EKG]; Z79.84 Long term (current) use of oral hypoglycemic drugs; Z79.899 Other long term (current) drug therapy

== ENCOUNTER 2025-01-26 10:23 | Day surgery (SDC) | payer MEDICARE, MEDICAID ==
[~2025-01-26] VITALS: Ht 182.9 cm; Wt 198.3 kg
[~2025-01-26 10:23] MED LIST changes: +ACET-683 PO; +DOXY-440 PO; +IBUP-354 PO; +NAPR220C14 PO; -TRAM50TA2; +TRAM50TA2 PO; +ceFAZolin SOD 2 GM IV ONCE IV ONE
[2025-01-26] MEDS: LR 1,000 ML IV SCH (10:30)
[2025-01-26] MEDS ORDERED: LIDOCAINE 2% 100 MG/5 ML SDV (FOR ANES.) As Ordered ONE (11:34)
[2025-01-26] MEDS ORDERED: MIDAZOLAM INJ 2 MG/2 ML VIAL As Ordered ONE (11:34)
[2025-01-26] MEDS ORDERED: LABETALOL 100 MG/20 ML VIAL As Ordered ONE (11:58)
[2025-01-26] MEDS ORDERED: dexAMETHasone 4 MG/ML 1 ML VIAL As Ordered ONE (12:20)
[2025-01-26] MEDS: CIPROFLOXACIN/D5W 400 MG/200 ML BAG As Ordered ONE (12:50)
[2025-01-26] MEDS ORDERED: ROCURONIUM BROMIDE 50MG/5ML VIAL As Ordered ONE (12:52)
[2025-01-26] MEDS ORDERED: HYDROmorphone HCL 2 MG/ML 1 ML VIAL As Ordered ONE (12:57)
[2025-01-26] MEDS: ISOVUE-300 61% 100 ML VIAL As Ordered ONE (13:00)
[2025-01-26] MEDS ORDERED: ONDANSETRON 4MG 2ML VIAL As Ordered ONE (13:02)
[2025-01-26] MEDS ORDERED: ACETAMINOPHEN 1000MG/100ML IV BAG As Ordered ONE (13:04)
[2025-01-26] MEDS ORDERED: SUCCINYLCHOLINE 100MG/5ML SYRINGE As Ordered ONE (13:04)
[2025-01-26] MEDS: ceFAZolin SOD 3 GM in DEXTROSE 5% (D5W) MINI-BAG PLU 1... IV ONE (13:05)
[2025-01-26] MEDS ORDERED: GLYCOPYRROLATE INJ 0.2 MG/ML 2 ML VIAL As Ordered ONE (13:10)
[2025-01-26] MEDS ORDERED: PHENYLephrine 500MCG 5ML (100MCG/ML) SYRINGE As Ordered ONE (13:14)
[2025-01-26] MEDS ORDERED: VASOPRESSIN INJ 20UNITS/ML 1ML VIAL As Ordered ONE (13:17)
[2025-01-26] MEDS ORDERED: SUGAMMADEX SODIUM 200 MG/2 ML VIAL As Ordered ONE (13:18)
[2025-01-26] MEDS ORDERED: LR 1,000 ML IV SCH (14:15)
[2025-01-26] MEDS ORDERED: HYDROMORPHONE HCL 0.5 MG/0.5 ML SYRINGE IV PRN (14:15)
[2025-01-26] MEDS ORDERED: diphenhydrAMINE 50 MG/ML VIAL IV PRN (14:15)
[2025-01-26] MEDS ORDERED: ALBUTEROL SULFATE 2.5 MG/0.5 ML INH CONCENTRATE NEB SOLN INH ONE (14:15)
[2025-01-26] MEDS ORDERED: HYDR-4514 PO (14:31)
[2025-01-26] MEDS ORDERED: PYRI1TAB5 PO (14:31)
[2025-01-26] MEDS ORDERED: OXYB5TAB14 PO (14:31)
[2025-01-26] MEDS ORDERED: LEVO1TAB39 PO (14:31)
[2025-01-26] MEDS ORDERED: GLUCOSE 4 GM CHEW PO PRN (15:30)
[2025-01-26] MEDS ORDERED: DEXTROSE 50% 50 ML SYRINGE IV PRN (15:30)
[2025-01-26] MEDS ORDERED: GLUCAGON INJ 1 MG VIAL SC PRN (15:30)
[2025-01-26] MEDS: INSULIN LISPRO (NovoLOG) PER UNIT SC SCH ×2 (17:30→21:00)
[2025-01-26 18:25] VITALS: BP 135/70; TEMP 97.3; O2SAT 99
[2025-01-26] MEDS: NS 0.45% 1,000 ML IV SCH (18:55)
[2025-01-26 20:12] VITALS: BP 182/76; TEMP 97.3; O2SAT 96
[2025-01-26] MEDS: DOXYCYCLINE HYCLATE 100 MG TABLET PO SCH (21:14)
[2025-01-26] MEDS: GABAPENTIN 100 MG CAP PO SCH (21:14)
[2025-01-26] MEDS: FAMOTIDINE 20 MG TAB PO SCH (21:14)
[2025-01-26 21:32] VITALS: BP 148/78
[2025-01-26] MEDS: PHENAZOPYRIDINE 100 MG TAB PO SCH (21:50)
[2025-01-26] MEDS: LABETALOL 100 MG TAB PO SCH (21:50)
[2025-01-26] MEDS: VALSARTAN 80MG TAB PO SCH (21:50)
[2025-01-26 23:50] VITALS: BP 151/77; TEMP 97.3; O2SAT 96
[2025-01-27 05:05] VITALS: BP 150/75; TEMP 97.5; O2SAT 97
[2025-01-27] MEDS: ACETAMINOPHEN 325 MG TAB PO PRN (05:54)
[2025-01-27 08:00] VITALS: BP 153/75; TEMP 97.7; O2SAT 98
[2025-01-27 08:30] VITALS: BP 153/75
[2025-01-27] MEDS: ATORVASTATIN 20 MG TAB PO SCH (08:32)
[2025-01-27 08:33] VITALS: BP 153/75
[2025-01-27] MEDS: amLODIPine 5 MG TAB PO SCH (08:33)
== END 2025-01-27 09:50 | disposition home or self-care (01) ==
LOC: M SDC 10:23 → M MS5PR 18:10 → M SDC 01-27 09:50
PROVIDERS: ATTEND Urology
DX: N20.0 Calculus of kidney (principal); I10 Essential (primary) hypertension; E78.5 Hyperlipidemia, unspecified; E11.9 Type 2 diabetes mellitus without complications; K21.9 Gastro-esophageal reflux disease without esophagitis; Z79.84 Long term (current) use of oral hypoglycemic drugs; Z79.51 Long term (current) use of inhaled steroids; J45.909 Unspecified asthma, uncomplicated; Z79.82 Long term (current) use of aspirin; G47.33 Obstructive sleep apnea (adult) (pediatric); D64.9 Anemia, unspecified; Z88.0 Allergy status to penicillin; Z91.013 Allergy to seafood
CPT/HCPCS: 52352; 52356; 76000; 82365; 87070; C1769; C2617; J0131; J0330; J0744; J1100; J1171; J1596; J1815; J2250; J2371; J2405; J2598; J3010; Q9967

== ENCOUNTER 2025-03-31 22:40 | Inpatient (IN) | payer MEDICARE, MEDICAID ==
[~2025-03-31] VITALS: Ht 182.9 cm; Wt 206.2 kg
[~2025-03-31 22:40] MED LIST changes: +HYDR-4514 PO; +LEVO1TAB39 PO; +OXYB5TAB14 PO; -ceFAZolin SOD 2 GM IV ONCE IV ONE
[2025-03-31 23:47] LABS: PLATELET COUNT, AUTOMATED 156 10^3/uL (150-450)
[2025-04-01 00:07] LABS: ALT/SGPT 18.0 U/L (7.0-40); AST/SGOT 20.0 U/L (<34); CALCIUM LEVEL 8.7 MG/DL (8.5-10.1); CARBON DIOXIDE LEVEL 22.0 MMOL/L (20-31); CHLORIDE LEVEL 110.0 MMOL/L (98-107); CREATININE FOR GFR 1.89 MG/DL (0.70-1.30); GLOMERULAR FILTRATION RATE 40.4 (>56); POTASSIUM SERUM 4.7 MMOL/L (3.5-5.1); SODIUM LEVEL 142.0 MMOL/L (136-145)
[2025-04-01 00:55] LABS: LYMPHOCYTES 6 % (16-44); METAMYELOCYTES 1 % (0-0); NEUTROPHILS 82 % (28-66)
[2025-04-01 00:56] LABS: PLATELET ESTIMATE NORMAL (NORMAL)
[2025-04-01] MEDS: ACETAMINOPHEN *IV* 1,000 MG in IV 1 EA IV ONE (01:46)
[2025-04-01] MEDS: NS (Normal Saline) 0.9% 2,000 ML in IV 1 EA IV ONE (01:46)
[2025-04-01 02:04] LABS: KETONE, URINE AUTO RFX NEGATIVE (NEGATIVE); MUCUS, URINE RFX SMALL (NEGATIVE); NITRITE, URINE AUTO RFX NEGATIVE (NEGATIVE); RBC, URINE AUTO RFX TNTC /HPF (0-3); SQUAM EPITHELIAL CELL UR AURFX 1 /HPF (0-6)
[2025-04-01 02:06] LABS: LEUKOCYTE ESTERASE UR AUTO RFX 2+ (NEGATIVE); WBC, URINE AUTO RFX 106 /HPF (0-3)
[2025-04-01] MEDS ORDERED: CEFEPIME HCL 2 GM in DEXTROSE 5% (D5W) ADV/MINI-BAG 50 ML IV ONE (03:20)
[2025-04-01] MEDS: ERTAPENEM SODIUM 1 GM in NS MINI-BAG PLUS 50 ML IV ONE (05:24)
[2025-04-01] MEDS: SODIUM CHLORIDE 0.9% 1000 ML IV SCH (06:51)
[2025-04-01] MEDS: NS (Normal Saline) 0.9% 1,000 ML IV SCH (07:30)
[2025-04-01 07:52] LABS: PLATELET COUNT, AUTOMATED 124 10^3/uL (150-450)
[2025-04-01 08:18] LABS: C REACTIVE PROTEIN QUANTITATIV 16.08 MG/DL (<1.0); CALCIUM LEVEL 8.1 MG/DL (8.5-10.1); CARBON DIOXIDE LEVEL 20.0 MMOL/L (20-31); CHLORIDE LEVEL 110.0 MMOL/L (98-107); CREATININE FOR GFR 2.23 MG/DL (0.70-1.30); GLOMERULAR FILTRATION RATE 33.1 (>56); POTASSIUM SERUM 4.7 MMOL/L (3.5-5.1); SODIUM LEVEL 143.0 MMOL/L (136-145)
[2025-04-01 08:21] LABS: VITAMIN B12 LEVEL 407 PG/ML (211-911)
[2025-04-01 08:26] LABS: IRON (FE) < 5 UG/DL (65-175); PERCENT SATURATION 2.1 % (19.7-50.0)
[2025-04-01 08:33] LABS: LYMPHOCYTES 4 % (16-44); METAMYELOCYTES 1 % (0-0); MONOCYTES 1 % (0-5); MYELOCYTES 1 % (0-0); NEUTROPHILS 68 % (28-66)
[2025-04-01 08:34] LABS: PLATELET ESTIMATE NORMAL (NORMAL)
[2025-04-01] MEDS: LABETALOL 100 MG TAB PO SCH (09:00)
[2025-04-01] MEDS ORDERED: ENOXAPARIN 40 MG/0.4 ML SYRINGE (J1650 PER 10MG) SC SCH (09:00)
[2025-04-01] MEDS: amLODIPine 5 MG TAB PO SCH (09:00)
[2025-04-01] MEDS ORDERED: SILV50CR TOP (09:46)
[2025-04-01] MEDS ORDERED: ONDA-83 PO (09:46)
[2025-04-01] MEDS ORDERED: NAPR-832 PO (09:46)
[2025-04-01] MEDS ORDERED: METF-838 PO (09:46)
[2025-04-01] MEDS ORDERED: FERR325T81 PO (09:46)
[2025-04-01] MEDS ORDERED: HOME MED LIST COMPLETE! XX SCH (09:50)
[2025-04-01 12:00] VITALS: BP 109/69; TEMP 98.1; O2SAT 94
[2025-04-01] MEDS ORDERED: GLUCOSE 4 GM CHEW PO PRN (13:20)
[2025-04-01] MEDS ORDERED: ALBUTEROL 90 MCG/ACT 8 GM HFA INHALER INH PRN (13:20)
[2025-04-01] MEDS ORDERED: **SFRHE** EPINEPHrine (EPIPEN) 0.3MG/0.3ML SYRINGE XX PRN (13:20)
[2025-04-01] MEDS ORDERED: DEXTROSE 50% 50 ML SYRINGE IV PRN (13:20)
[2025-04-01] MEDS ORDERED: GLUCAGON INJ 1 MG VIAL SC PRN (13:20)
[2025-04-01] MEDS: ATORVASTATIN 20 MG TAB PO SCH (13:55)
[2025-04-01] MEDS: GABAPENTIN 100 MG CAP PO SCH (13:56)
[2025-04-01] MEDS: PANTOPRAZOLE 40MG TAB PO SCH (13:56)
[2025-04-01] MEDS: FAMOTIDINE 20 MG TAB PO SCH (13:56)
[2025-04-01] MEDS: HEPARIN SOD 5000 UNITS/ML 1 ML VIAL/SYRINGE SQ SCH (13:56)
[2025-04-01] MEDS: INSULIN LISPRO (NovoLOG) PER UNIT SC SCH ×2 (13:57→21:00)
[2025-04-01 20:00] VITALS: BP 108/63; TEMP 98.4; O2SAT 93
[2025-04-01] MEDS: ERTAPENEM SODIUM 1 GM in NS MINI-BAG PLUS 50 ML IV SCH (21:56)
[2025-04-01] MEDS: ACETAMINOPHEN 325 MG TAB PO PRN (21:58)
[2025-04-02] VITALS (8 sets, daily range): BP systolic 108–148; BP diastolic 56–73; TEMP 97.3–97.9; O2SAT 88–98
[2025-04-02] MEDS: ONDANSETRON 4MG/2ML VIAL IV PRN (02:50)
[2025-04-02] MEDS: MORPHINE 4 MG/ML 1 ML VIAL IV ONE (03:25)
[2025-04-02 06:58] LABS: BASO # 0.0 10^3/uL (0.0-0.2); BASO % 0.2 % (0.0-1.0); EOS # 0.2 10^3/uL (0.0-0.5); EOS % 1.4 % (0.0-3.0); LYMPH # 0.8 10^3/uL (1.5-5.0); LYMPH % 5.0 % (24.0-44.0); MONO # 1.2 10^3/uL (0.0-0.8); MONO % 7.6 % (2.0-8.0); NEUTROPHILS # 13.6 10^3/uL (1.5-8.5); NEUTROPHILS % 84.7 % (36.0-66.0); PLATELET COUNT, AUTOMATED 147 10^3/uL (150-450)
[2025-04-02 07:12] LABS: ALT/SGPT 23.0 U/L (7.0-40); AST/SGOT 35.0 U/L (<34); CALCIUM LEVEL 8.1 MG/DL (8.5-10.1); CARBON DIOXIDE LEVEL 22.0 MMOL/L (20-31); CHLORIDE LEVEL 108.0 MMOL/L (98-107); CREATININE FOR GFR 2.4 MG/DL (0.70-1.30); GLOMERULAR FILTRATION RATE 30.3 (>56); POTASSIUM SERUM 4.6 MMOL/L (3.5-5.1); SODIUM LEVEL 140.0 MMOL/L (136-145)
[2025-04-02] MEDS: HYDROMORPHONE HCL 0.5 MG/0.5 ML SYRINGE IV PRN (11:06)
[2025-04-02] MEDS ORDERED: LIDOCAINE 2% 100 MG/5 ML SDV (FOR ANES.) As Ordered ONE (14:54)
[2025-04-02] MEDS ORDERED: ROCURONIUM BROMIDE 50MG/5ML VIAL As Ordered ONE (14:54)
[2025-04-02] MEDS ORDERED: SUGAMMADEX SODIUM 500 MG/5 ML VIAL As Ordered ONE (14:54)
[2025-04-02] MEDS ORDERED: ONDANSETRON 4MG/2ML VIAL As Ordered ONE (14:57)
[2025-04-02] MEDS ORDERED: KETOROLAC 30 MG/ML 1 ML VIAL As Ordered ONE (14:57)
[2025-04-02] MEDS ORDERED: dexAMETHasone 4 MG/ML 1 ML VIAL As Ordered ONE (14:57)
[2025-04-02] MEDS: ISOVUE-300 61% 100 ML VIAL As Ordered ONE (15:25)
[2025-04-02] MEDS ORDERED: ACETAMINOPHEN 1000MG/100ML IV BAG As Ordered ONE (15:27)
[2025-04-03] VITALS: BP 136/70; TEMP 97.2; O2SAT 94
[2025-04-03] MEDS: HYDROMORPHONE HCL 0.5 MG/0.5 ML SYRINGE IV PRN (00:09)
[2025-04-03 04:00] VITALS: BP 142/69; TEMP 97.9; O2SAT 97
[2025-04-03 08:00] VITALS: BP 141/69; TEMP 97.7; O2SAT 94
[2025-04-03 12:00] VITALS: BP 140/69; TEMP 97.9; O2SAT 93
[2025-04-03 12:11] LABS: PLATELET COUNT, AUTOMATED 212 10^3/uL (150-450)
[2025-04-03 12:24] LABS: CALCIUM LEVEL 8.1 MG/DL (8.5-10.1); CARBON DIOXIDE LEVEL 22.0 MMOL/L (20-31); CHLORIDE LEVEL 109.0 MMOL/L (98-107); CREATININE FOR GFR 2.31 MG/DL (0.70-1.30); GLOMERULAR FILTRATION RATE 31.8 (>56); POTASSIUM SERUM 5.8 MMOL/L (3.5-5.1); SODIUM LEVEL 142.0 MMOL/L (136-145)
[2025-04-03 13:04] LABS: PHOSPHORUS LEVEL 4.6 MG/DL (2.5-4.9)
[2025-04-03 16:00] VITALS: BP 125/57; TEMP 98.1; O2SAT 93
[2025-04-03] MEDS: FUROSEMIDE 40 MG TAB PO SCH (17:05)
[2025-04-03] MEDS: DEXTROSE 50% 50 ML SYRINGE IV STA (19:42)
[2025-04-03] MEDS: HumuLIN R (REGULAR) INSULIN (NovoLIN R) **100 U/ML** PER UNIT IV STA (19:42)
[2025-04-03] MEDS: LR 1,000 ML IV SCH (19:42)
[2025-04-03 20:00] VITALS: BP 124/84; TEMP 98.1; O2SAT 93
[2025-04-03 22:08] LABS: CALCIUM LEVEL 7.8 MG/DL (8.5-10.1); CARBON DIOXIDE LEVEL 22.0 MMOL/L (20-31); CHLORIDE LEVEL 111.0 MMOL/L (98-107); CREATININE FOR GFR 2.17 MG/DL (0.70-1.30); GLOMERULAR FILTRATION RATE 34.2 (>56); POTASSIUM SERUM 5.6 MMOL/L (3.5-5.1); SODIUM LEVEL 143.0 MMOL/L (136-145)
[2025-04-04 04:39] VITALS: BP 128/70; TEMP 97.7; O2SAT 92
[2025-04-04 06:34] LABS: PLATELET COUNT, AUTOMATED 188 10^3/uL (150-450)
[2025-04-04 07:03] LABS: CALCIUM LEVEL 8.0 MG/DL (8.5-10.1); CARBON DIOXIDE LEVEL 24.0 MMOL/L (20-31); CHLORIDE LEVEL 110.0 MMOL/L (98-107); CREATININE FOR GFR 2.01 MG/DL (0.70-1.30); GLOMERULAR FILTRATION RATE 37.5 (>56); POTASSIUM SERUM 5.7 MMOL/L (3.5-5.1); SODIUM LEVEL 142.0 MMOL/L (136-145)
[2025-04-04 12:00] VITALS: BP 144/71; TEMP 97.7; O2SAT 96
[2025-04-04] MEDS: PATIROMER SORBITEX CALCIUM 8.4GM POWDER PACKET PO ONE (12:39)
[2025-04-04 20:11] VITALS: BP 157/76; TEMP 97.5; O2SAT 94
[2025-04-05 03:45] VITALS: BP 146/55; TEMP 97.5; O2SAT 92
[2025-04-05 07:25] LABS: PLATELET COUNT, AUTOMATED 246 10^3/uL (150-450)
[2025-04-05 07:58] LABS: CALCIUM LEVEL 8.4 MG/DL (8.5-10.1); CARBON DIOXIDE LEVEL 27.0 MMOL/L (20-31); CHLORIDE LEVEL 107.0 MMOL/L (98-107); CREATININE FOR GFR 1.68 MG/DL (0.70-1.30); GLOMERULAR FILTRATION RATE 46.5 (>56); POTASSIUM SERUM 5.0 MMOL/L (3.5-5.1); SODIUM LEVEL 143.0 MMOL/L (136-145)
[2025-04-05 09:18] LABS: ALT/SGPT 46.0 U/L (7.0-40); AST/SGOT 49.0 U/L (<34)
[2025-04-05 09:19] VITALS: BP 157/88; TEMP 97.7; O2SAT 93
[2025-04-05 12:07] VITALS: BP 119/33; TEMP 97.5; O2SAT 94
[2025-04-05 16:38] VITALS: BP 133/54
[2025-04-05 20:00] VITALS: BP 137/73; TEMP 97.5; O2SAT 91
[2025-04-06 05:27] VITALS: BP 133/56; TEMP 97.7; O2SAT 92
[2025-04-06 06:40] LABS: PLATELET COUNT, AUTOMATED 318 10^3/uL (150-450)
[2025-04-06 07:13] LABS: CALCIUM LEVEL 8.4 MG/DL (8.5-10.1); CARBON DIOXIDE LEVEL 28.0 MMOL/L (20-31); CHLORIDE LEVEL 105.0 MMOL/L (98-107); CREATININE FOR GFR 1.46 MG/DL (0.70-1.30); GLOMERULAR FILTRATION RATE 55.1 (>56); POTASSIUM SERUM 4.9 MMOL/L (3.5-5.1); SODIUM LEVEL 142.0 MMOL/L (136-145)
[2025-04-06 08:18] VITALS: BP 160/74; TEMP 97.7; O2SAT 96
[2025-04-06 12:00] VITALS: BP 150/75; TEMP 97.5; O2SAT 100
[2025-04-06 17:14] VITALS: BP 148/75
[2025-04-06 20:15] VITALS: BP 147/71; TEMP 97.9; O2SAT 97
[2025-04-07 05:04] VITALS: BP 166/76; TEMP 98.1; O2SAT 94
[2025-04-07 07:35] LABS: PLATELET COUNT, AUTOMATED 405 10^3/uL (150-450)
[2025-04-07 08:35] LABS: CALCIUM LEVEL 8.8 MG/DL (8.5-10.1); CARBON DIOXIDE LEVEL 30.0 MMOL/L (20-31); CHLORIDE LEVEL 104.0 MMOL/L (98-107); CREATININE FOR GFR 1.4 MG/DL (0.70-1.30); GLOMERULAR FILTRATION RATE 57.9 (>56); POTASSIUM SERUM 4.9 MMOL/L (3.5-5.1); SODIUM LEVEL 144.0 MMOL/L (136-145)
[2025-04-07 09:00] VITALS: BP 160/84
[2025-04-07 12:30] VITALS: BP 134/60; TEMP 97.7; O2SAT 93
== END 2025-04-07 15:20 | disposition home or self-care (01) | DRG 856 ==
LOC: M ED 22:40 → M ED INP 22:41 → OBSVTOIN 04-01 07:18 → M MSPAV 04-01 12:00
PROVIDERS: ADMIT Student in an Organized Health Care Education/Training Program; ATTEND Student in an Organized Health Care Education/Training Program
PROC: 0T768DZ Dilation of Right Ureter with Intraluminal Device, Via Natural or Artificial Opening Endoscopic (ICD-10-PCS; principal; 2025-04-02 14:15)
DX: T81.44XA Sepsis following a procedure, initial encounter (principal); A41.9 Sepsis, unspecified organism; K82.1 Hydrops of gallbladder; N17.9 Acute kidney failure, unspecified; N39.0 Urinary tract infection, site not specified; N13.2 Hydronephrosis with renal and ureteral calculous obstruction; I12.9 Hypertensive chronic kidney disease with stage 1 through stage 4 chronic kidney disease, or unspecified chronic kidney disease; N18.9 Chronic kidney disease, unspecified; D50.9 Iron deficiency anemia, unspecified; E66.01 Morbid (severe) obesity due to excess calories; R53.83 Other fatigue; E11.40 Type 2 diabetes mellitus with diabetic neuropathy, unspecified; E11.22 Type 2 diabetes mellitus with diabetic chronic kidney disease; E78.5 Hyperlipidemia, unspecified; K21.9 Gastro-esophageal reflux disease without esophagitis; E87.5 Hyperkalemia; Z91.013 Allergy to seafood; Z88.0 Allergy status to penicillin; Z88.8 Allergy status to other drugs, medicaments and biological substances; Z79.899 Other long term (current) drug therapy; Y84.6 Urinary catheterization as the cause of abnormal reaction of the patient, or of later complication, without mention of misadventure at the time of the procedure

== ENCOUNTER → 2025-04-01 | Outpatient (REF) | payer MEDICARE, MEDICAID ==
[~2025-04-01] MED LIST changes: +FERR325T81 PO; +METF-838 PO; +NAPR-832 PO; +ONDA-83 PO; +SILV50CR TOP
== END ==
LOC: M SFHCLERA 17:16
PROVIDERS: ATTEND Internal Medicine
DX: R35.89 Other polyuria (principal)

== ENCOUNTER → 2025-04-16 | Outpatient (REF) | payer MEDICARE | LOC: M SFHCLERA 15:21 | PROVIDERS: ATTEND Urology | DX: Z53.9 Procedure and treatment not carried out, unspecified reason (principal) ==

== ENCOUNTER → 2025-05-18 | Outpatient (CLI) | payer MEDICARE, MEDICAID ==
[~2025-05-18] MED LIST changes: +ECOT81TA5 PO; -LABE100T6 PO; +LABE100T91 PO; +SULF-8 PO
[2025-05-18 12:56] LABS: PLATELET COUNT, AUTOMATED 300 10^3/uL (150-450)
[2025-05-18 12:59] LABS: ALT/SGPT 22.0 U/L (7.0-40); AST/SGOT 17.0 U/L (<34); CALCIUM LEVEL 8.7 MG/DL (8.5-10.1); CARBON DIOXIDE LEVEL 26.0 MMOL/L (20-31); CHLORIDE LEVEL 105.0 MMOL/L (98-107); CREATININE FOR GFR 1.56 MG/DL (0.70-1.30); GLOMERULAR FILTRATION RATE 50.9 (>56); POTASSIUM SERUM 4.6 MMOL/L (3.5-5.1); PSA SCREENING 1.21 NG/ML (< 4.00); SODIUM LEVEL 140.0 MMOL/L (136-145)
== END ==
LOC: M WUC 09:49
PROVIDERS: ATTEND Urology
DX: N20.0 Calculus of kidney (principal)

== ENCOUNTER → 2025-05-27 | Outpatient (REF) | payer MEDICARE ==
[~2025-05-27] MED LIST changes: +HYDR-3719 PO
[2025-05-27 17:25] LABS: APPEARANCE, URINE TURBID (CLEAR); BACTERIA, URINE AUTO NEGATIVE (NEGATIVE); BILIRUBIN, URINE AUTO NEGATIVE (NEGATIVE); BLOOD, URINE BLOOD 3+ (NEGATIVE); GLUCOSE, URINE (UA) AUTO NEGATIVE (NEGATIVE); KETONE, URINE AUTO NEGATIVE (NEGATIVE); LEUKOCYTE ESTERASE, URINE AUTO 3+ (NEGATIVE); MUCUS, URINE SMALL (NEGATIVE); NITRITE, URINE AUTO NEGATIVE (NEGATIVE); PROTEIN, URINE AUTO 2+ mg/dL (NEGATIVE); RBC, URINE AUTO TNTC /HPF (0-3); SPECIFIC GRAVITY URINE AUTO 1.011 (1.002-1.035); SQUAMOUS EPITHELIAL CELL UR AU 0 /HPF (0-6); UROBILINOGEN, URINE AUTO 0.2 mg/dL (0.0-2.0); WBC, URINE AUTO TNTC /HPF (0-3)
== END ==
LOC: M SFHCLERA 10:25
PROVIDERS: ATTEND Internal Medicine
DX: Z87.440 Personal history of urinary (tract) infections (principal); N20.0 Calculus of kidney

== ENCOUNTER 2025-06-01 07:50 | Day surgery (SDC) | payer MEDICARE, MEDICAID ==
[~2025-06-01] VITALS: Ht 182.9 cm; Wt 183.7 kg
[~2025-06-01 07:50] MED LIST changes: -HYDR-3719 PO
[2025-06-01] MEDS ORDERED: MIDAZOLAM INJ 2 MG/2 ML VIAL As Ordered ONE (08:11)
[2025-06-01] MEDS ORDERED: LIDOCAINE 2% 100 MG/5 ML SDV (FOR ANES.) As Ordered ONE (08:11)
[2025-06-01] MEDS ORDERED: dexAMETHasone 4 MG/ML 1 ML VIAL As Ordered ONE (08:14)
[2025-06-01] MEDS ORDERED: KETOROLAC 30 MG/ML 1 ML VIAL As Ordered ONE (08:14)
[2025-06-01] MEDS ORDERED: ONDANSETRON 4MG/2ML VIAL As Ordered ONE (08:14)
[2025-06-01] MEDS ORDERED: ACETAMINOPHEN 1000MG/100ML IV BAG As Ordered ONE (08:16)
[2025-06-01] MEDS: LR 1,000 ML IV SCH (08:30)
[2025-06-01] MEDS ORDERED: ROCURONIUM BROMIDE 50MG/5ML VIAL As Ordered ONE (08:45)
[2025-06-01] MEDS: D5W IV ONE (09:21)
[2025-06-01] MEDS: GENTAMICIN IV ONE (09:21)
[2025-06-01] MEDS: ISOVUE-300 61% 100 ML VIAL As Ordered ONE (09:22)
[2025-06-01] MEDS ORDERED: PHENYLephrine 500MCG 5ML (100MCG/ML) SYRINGE As Ordered ONE (10:07)
[2025-06-01] MEDS ORDERED: HYDROMORPHONE HCL 0.5 MG/0.5 ML SYRINGE IV PRN (10:30)
[2025-06-01] MEDS ORDERED: LR 1,000 ML IV SCH (10:30)
[2025-06-01] MEDS ORDERED: HYDR-3719 PO (10:30)
[2025-06-01] MEDS ORDERED: ONDANSETRON 4MG/2ML VIAL IV PRN (10:30)
[2025-06-01 12:00] VITALS: BP 128/59; TEMP 96.7; O2SAT 100
== END 2025-06-01 12:26 | disposition home or self-care (01) ==
LOC: M SDC 07:50
PROVIDERS: ATTEND Urology
DX: N20.0 Calculus of kidney (principal); N32.81 Overactive bladder; Z87.442 Personal history of urinary calculi; E66.01 Morbid (severe) obesity due to excess calories; E11.40 Type 2 diabetes mellitus with diabetic neuropathy, unspecified; I10 Essential (primary) hypertension; J45.909 Unspecified asthma, uncomplicated; Z79.82 Long term (current) use of aspirin; Z79.899 Other long term (current) drug therapy; K21.9 Gastro-esophageal reflux disease without esophagitis; G47.30 Sleep apnea, unspecified; Z88.1 Allergy status to other antibiotic agents; Z88.0 Allergy status to penicillin; Z91.013 Allergy to seafood
CPT/HCPCS: 52356; 76000; 82365; C1769; C2617; J0131; J1100; J1580; J1885; J2250; J2371; J2405; J3010; Q9967